=== PATIENT | female | born 1940 | race Caucasian/White ===

== ENCOUNTER 2016-08-21 16:03 | Emergency (ER) | payer MEDICARE ==
[~2016-08-21] VITALS: Ht 162.6 cm; Wt 68.0 kg
[~2016-08-21 16:03] MED LIST: ACIPHEX 20 MG T20 MG PO; ALBUTEROL0.09 MG/A2 IH; BENTYL GENERIC10 MG PO; FLEXERIL10 MG PO; LEVAQUIN250 MG PO; LORTAB 480 ML480 ML PO; MAXIDE; MEDROL 4MG. DOSE4 MG PO; NAPROSYN 500MG500 MG PO; PRILOSEC20 M1 PO; TRICOR 145 MG145 MG PO; WARFARIN SOD2 MG PO; WARFARIN SODIUM4 MG PO; WARFARIN4 MG PO; XANAX XR0.5 MG PO; ZOFRAN4 MG PO; [UNRECOGNIZED DRUG - OTHER] PO
--- NOTE | 2016-08-21 16:31 | Emergency Room Report ---
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 Clinical Suspician of Infection? Mental Status: Sepsis Risk: Have you (or family members/close friends) recently traveled outside the [facility]? If Yes, where/when: Have you had exposure to infectious disease within the past month? TB? Other? Specify: Source patient, RN notes reviewed Exam Limitations no limitations Comment Pt sat down on her bed earlier to fold some clothes and got to the point where she did not feel she could focus. She not black out but felt very weak. Some nausea and some achiness and she did not fall. 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 She states she is very nervous person and does have a mild PATEL with this. I have told her I can not do a CT of the head here today and if her labs show any type of abnormality, she may need to be transferred someplace else to get a CT. Cardiac Chest Pain Chest pain indicative of cardiac No ALLERGIES Coded Allergies: MDX - Aspirin (ASPIRIN) (N/V, INCREASED HR, DIAPHORESIS 12/12/11) MDX - Codeine (CODEINE) (RAPID HEART RATE 01/12/13) MDX - Morphine (MORPHINE) (RAPID HEART RATE 01/12/13) Home Medications Reported Medications [MAXIDE] Alprazolam (Xanax Xr) 0.5 MG PO BID Fenofibrate 145 MG PO QHS OMEPRAZOLE MAGNESIUM (Prilosec 20MG) 20 MG PO DAILY Warfarin Sodium 2 MG PO M,W,F Warfarin Sodium (Warfarin 4MG) 4 MG PO T,R,S,SUN History Medical History General CAD? No Angina: No TN: No Hypertension? Yes Hyperlipidemia? Yes CHF? No COPD? Yes Asthma? No Anemia? No Hernia? Yes Thyroid Problems? No Hypothyroidism? No CVA? Yes Seizures? No Diabetes? No End Stage Renal Disease? No UTI? No Stones? No GB Disease: Yes Nephritic Syndrome? No Asplenia? No Hepatitis? No Sickle Cell Disease? No Arthritis? Yes Cataracts? Yes Glaucoma? No MRSA? No TB? 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 Additional hx: BENIGN ESSENTIAL TREMORS Immunization Hx DT/Tetanus 1-4 Years Ago Flu THIS YR Pneumonia 1-4 YRS Surgical Hx Previous Surgery?Y RIGHT WRIST LEFT RENAL STENT BRADEN [place] RIGHT LUMPECTOMY POLYPS VAG PROLAPSE REPAIR RECTOCELE DISC/BONE GRAFTS C SPINE GREEN FIELD FILTER Family History Family Hx Diabetes No CAD Yes Hypertension Yes Hyperlipidemia Yes Cancer Yes TB No Social History Smoking Hx Packs/day < 1 Pack Alcohol Alcohol: No Review of Systems All Other Systems Reviewed and Negative Constitutional see HPI Eyes see HPI Psychiatric/Neurological see HPI Physical Exam Vital Signs Vital Signs Date Time Temp Pulse Resp B/P Pulse O2 O2 Flow FiO2 Ox Delivery Rate 08/21 1722 60 18 117/53 97 08/21 1638 84 18 147/72 98 08/21 1610 98.8 74 18 151/70 96 General Appearance normal appearance, WD/WN, no apparent distress Respiratory Status No: respiratory distress. Cardiovascular normal exam, regular rate/rhythm Neurologic alert, credentialing analyst II-XII nml as tested, normal exam, She does have a rather significant tremor and has been told in the past she has a Progressive central tremor and also told she has had a couple of mini strokes. but there is no arm drift, tongue protrudes in the midline and mile is symmetrical and speech is clear Medical Decision Making LABS/Meds/Orders Pt receiving controlled substance in ED? No Results/Orders Laboratory Tests 08/21/16 1612: Sodium 139, Potassium 3.5, Chloride 105, Carbon Dioxide 29, BUN 20 H, Creatinine 1.0, Estimated Creat Clear 51, Estimated GFR (MDRD) 54 L, Glucose 107 H, Calcium 9.0, Total Bilirubin 0.3, AST 28, ALT 27, Alkaline Phosphatase 51, Total Protein 8.2, Albumin 3.2 L, Globulin 5.0 H, Albumin/Globulin Ratio 0.6 L, PT 20.1 H, INR 1.88 H, WBC 5.1, RBC 4.73, Hgb 13.2, Hct 39.8, MCV 84.1 , RDW 14.8, Plt Count 197, MPV 7.0 L, Gran % 43.4, Gran # 2.2, Lymphocytes % 44.1, Monocytes % 6.1, Eosinophils % 5.5, Basophils % 0.8, Lymphocytes # 2.3, Monocytes # 0.3, Eosinophils # 0.3, Basophils # 0.0, PUBS MCHC 33.1, MCH 27.9 Current Medication Orders Sig/Kemar Start time Last Medication Dose Route Stop Time Status Admin Sodium Chloride 10 ML PRN PRN 08/21 1700 AC IV 08/22 164 Orders Procedure Date/time Status ELECTROCARDIOGRAM REQUEST 08/21 164 Active IV SALINE LOCK 08/21 164 Active PROTHROMBIN TIME 08/21 164 Complete CBC WITH AUTO DIFF 08/21 1648 Complete CHEM 12 PROFILE 08/21 1648 Complete Departure Departure Time of Disposition 1732 Disposition DC Home or Self Care(routine) Clinical Impression Primary Impression: Dizziness Secondary Impressions: TIA (transient ischemic attack) Qualifiers: Transient cerebral ischemia type: unspecified Qualified Code: G45.9 - Transient cerebral ischemic attack, unspecified Condition STABLE Referrals LUIS PEREZ (Family): 2 Days-Call Office Patient Instructions DI for Transient Ischemic Attack, Transient Ischemic Attack Additional Instructions Take Warfarin, 2mg extra, tonight and if symptoms worsen, go to an ED where a CT scan can be done tonight. If symptoms remain stable, return to this ED tomorrow after 2PM to get repeat CT scan Discharge Counseling Counseled pt/family regarding diagnosis, test results, medications/RX, home care, follow up needs ED Critical Care Critical Care No If Critical Care minutes are documented, the time involved in the performance of seperately reportable procedures was not counted toward critical care time documented. I directly delivered medical care to this critically ill and/or injured patient. Timely evaluation and treatment was necessary to address the significant organ system(s) dysfunction present in this patient. at 1735
[2016-08-21 16:58] LABS: HEMOGLOBIN 13.2 g/dL (12.2-16.2); LYMPH # 2.3 K/mm3 (0.7-4.5); LYMPH % 44.1 % (10-50.0)
[2016-08-21 17:50] VITALS: BP 143/66
--- OUTSIDE RECORDS SUMMARY | 2016-08-22 23:49 | External Medical Summary Rpt ---
Author Author , Organization [employer] Address Unknown Phone Unavailable Care Team Providers Care Outreach Worker Name Role Phone JUAN PABLODARIEN CROOKS , Unavailable Unavailable JUAN PABLO DELGADILLOISHAN STEVENS Purpose Continuity of Care Document - 01-12-2013 through 2016 Problems Code Diagnosis DOS Provider Status 305.1 305.1 06-07-2013 [place] TOBACCO USE [facility] 401.9 401.9 06-07-2013 [place] HYPERTENSIO [facility] 496 496 CHR 06-07-2013 [place] [facility] 847.0 06-07-2013 [place] SPRAIN OF [facility] E849.0 E849.0 06-07-2013 [place] ACCIDENT IN [facility] E886.9 E886.9 FALL 06-07-2013 [place] ON LEVEL [facility] G45.9 TRANSIENT CEREBRAL ISCHEMIC ATTACK, UNSPECIFIED R42 DIZZINESS AND GIDDINESS Allergies, Adverse Reactions, Alerts Type Drug Allergy Adverse Reaction to Substance Substance Reaction Severity Aspirin N/V,INCREASED Unknown HR,DIAPHORESIS Codeine RAPID HEART RATE Unknown Morphine RAPID HEART RATE Unknown Medications Na ND Rx Da Fi Fi Am Da Di Ph RX Ph St me C No te ll ll ou ys ag ar # ys at rm s nt no ma ic us Or Da si cy ia de te s n re d Sa 63 02 0 No li 80 -1 ne 70 3- Lo 10 20 ng Fl 07 14 er us 5 h Ac 10 ti ML ve Sy ri ng e Sa 63 02 0 No li 80 -1 ne 70 3- Lo 10 20 ng Fl 07 14 er us 5 h Ac 10 ti ML ve Sy ri ng e Sa 63 09 1 No li 80 -2 ne 70 0- Lo 10 20 ng Fl 07 13 er us 5 h Ac 10 ti ML ve Sy ri ng e HY [address] 40 -2 OM 91 0- Lo OR 31 20 ng PH 23 13 er ON 0 E Ac 2 ti MG ve /M L CA RP UJ CT ON 00 09 0 No DA 64 -2 NS 16 0- Lo ET 08 20 ng RO 02 13 er N 5 HC Ac L ti 4 ve MG /2 ML AL IN 00 09 0 No OM 64 -2 ET 11 0- Lo PATEL 49 20 ng ZI 53 13 er NE 5 Ac 25 ti ve MG /M L AM PU L SO 00 09 1 No DI 40 -2 UM 97 0- Lo 98 20 ng CH 42 13 er LO 0 RI Ac DE ti ve 0. 9% SO KIAH TI ON Vital Signs 06-07-2013 18:37 Name Value Interpretat Reference Comment ion Range Body 98.4 [degF] Temperature BP 76 mm[Hg] Diastolic BP Systolic 151 mm[Hg] Heart 81 /min Rate/Pulse O2% 95 % Respiratory 20 /min Rate 06-07-2013 18:31 Name Value Interpretat Reference Comment ion Range Body 98.4 [degF] Temperature BP 76 mm[Hg] Diastolic BP Systolic 151 mm[Hg] Heart 81 /min Rate/Pulse O2% 95 % Respiratory 20 /min Rate 01-13-2013 01:59 Name Value Interpretat Reference Comment ion Range BP 58 mm[Hg] Diastolic BP Systolic 110 mm[Hg] Heart 75 /min Rate/Pulse O2% 94 % Respiratory 20 /min Rate 01-12-2013 23:03 Name Value Interpretat Reference Comment ion Range BP 63 mm[Hg] Diastolic BP Systolic 119 mm[Hg] Heart 78 /min Rate/Pulse O2% 96 % Respiratory 20 /min Rate Results Labs Lab Lab Date Result Refere Interp Status Commen Order Detail nces retati t Range on URINALYSIS/COMPLETE (01-13-2013 01:20) URINE YELLOW YELLOW complet COLOR 013 ed 01:20 URINE CLEAR CLEAR complet APPEARA 013 ed NCE 01:20 URINE NEGATIV NEG complet GLUCOSE 013 E ed - 01:20 DIPSTIC K URINE NEGATIV NEG complet BILIRUB 013 E ed IN - 01:20 DIPSTIC K URINE NEGATIV NEG complet KETONE 013 E mg/dL ed 01:20 URINE Greater 1.005-1 complet SPECIFI 013 than .030 ed C 01:20 or GRAVITY equal to 1.030 URINE NEGATIV NEG complet BLOOD 013 E ed 01:20 URINE 5.5 UNK 5.0-8.5 complet PH 013 ed 01:20 URINE NEGATIV NEG complet PROTEIN 013 E mg/dL ed - 01:20 DIPSTIC K URINE 0.2 NEG complet UROBILI 013 E.U./dL ed NOGEN - 01:20 DIPSTIC K URINE NEGATIV NEG complet NITRATE 013 E ed - 01:20 DIPSTIC K URINE NEGATIV NEG complet LEUK 013 E ed ESTERAS 01:20 E URINE OCC 0 complet RBC 013 rbc/hpf ed 01:20 URINE 5-10 O complet WBC 013 wbc/hpf ed 01:20 URINE 5-10 NONE complet RENAL 013 #/HPF ed CELLS 01:20 COMPREHENSIVE METABOLIC PANEL (01-12-2013 22:45) Glucose 140 74-106 complet 013 mg/dL ed Bld-mCn 22:45 c BUN 20 7-18 complet Bld-mCn 013 mg/dL ed c 22:45 Creat 1.3 0.6-1.0 complet SerPl-m 013 mg/dL ed Cnc 22:45 ESTIMAT 43 50-200 complet ED 013 ML/MIN ed CREATIN 22:45 INE CLEARAN CE GFR 40 59- complet (ESTIMA 013 ML/MIN ed MATI) 22:45 Sodium 140 136-145 complet SerPl-s 013 mmoL/L ed Cnc 22:45 Potassi 3.3 3.5-5.1 complet um 013 mmoL/L ed SerPl-s 22:45 Cnc Chlorid 102 98-107 complet e 013 mmoL/L ed SerPl-s 22:45 Cnc CO2 28 21.0-32 complet SerPl-s 013 mmoL/L .0 ed Cnc 22:45 Calcium 9.0 8.5-10. complet 013 mg/dL 1 ed SerPl-m 22:45 Cnc Prot 8.0 6.4-8.2 complet SerPl-m 013 gm/dL ed Cnc 22:45 Albumin -20-2 3.7 3.4-5.0 complet 013 gm/dL ed SerPl-m 22:45 Cnc Globuli -20-2 4.3 1.3-3.2 complet n 013 gm/dL ed Ser-mCn 22:45 c Albumin 01-12-2 0.9 UNK 1.1-1.8 complet /Glob 013 ed SerPl-m 22:45 Rto Bilirub 01-12-2 0.2 0.2-1.0 complet 013 mg/dL ed SerPl-m 22:45 Cnc AST 01-12-2 18 U/L 15-37 complet SerPl-c 013 ed Cnc 22:45 ALT 01-12-2 32 U/L 30-65 complet SerPl-c 013 ed Cnc 22:45 ALP 01-12-2 75 U/L 50-136 complet SerPl-c 013 ed Cnc 22:45 PROTIME/INR (01-12-2013 22:45) PROTHRO 01-12-2 22.6 9.9-11. complet MBIN 013 SECONDS 6 ed TIME 22:45 INR Bld 01-12-2 2.10 0.9-1.1 complet 013 UNK ed 22:45 CBC with AUTO DIFF (01-12-2013 22:45) WBC # 20-2 9.3 4.8-10. complet Bld 013 K/MM3 8 ed Auto 22:45 RBC # 20-2 4.87 4.2-5.4 complet Bld 013 M/mm3 ed Auto 22:45 Hgb 01-12-2 14.1 12.2-16 complet Bld-mCn 013 g/dL .2 ed c 22:45 Hct Fr 01-12-2 42.2 % 37.0-47 complet Bld 013 .0 ed 22:45 MCV RBC 01-12-2 86.7 fl 82.2-97 complet 013 .8 ed 22:45 MCH RBC 20-2 29.1 pg 27-31.2 complet Qn 013 ed Auto 22:45 MEAN 01-12-2 33.5 31.8-35 complet CORPUSC 013 g/dl .4 ed ULAR 22:45 HGB CONC RDW RBC 09-20-2 15.4 % 11.5-17 complet Auto 013 .5 ed 22:45 Platele 09-20-2 246 142-424 complet t Bld 013 K/mm3 ed Ql 22:45 Manual MEAN -20-2 8.1 fl 7.4-10. complet PLATELE 013 4 ed T 22:45 VOLUME Granulo 09-20-2 59.7 % 37.0-80 complet cytes 013 .0 ed Fr Bld 22:45 Auto LYMPH % 09-20-2 30.1 % 10-50.0 complet 013 ed 22:45 Monocyt 09-20-2 6.0 % 1.7-9.3 complet es Fr 013 ed Bld 22:45 Auto Eosinop 09-20-2 3.8 % 0.1-12. complet hil Fr 013 0 ed Bld 22:45 Auto Basophi 09-20-2 0.4 % 0.1-2.0 complet ls Fr 013 ed Bld 22:45 Auto Granulo 09-20-2 5.5 1.8-7.8 complet cytes # 013 K/mm3 ed Bld 22:45 Auto Lymphoc 09-20-2 2.8 0.7-4.5 complet ytes Fr 013 K/mm3 ed Bld 22:45 Auto Monocyt 09-20-2 0.6 0.1-1.0 complet es # 013 K/mm3 ed Bld 22:45 Auto Eosinop 09-20-2 0.4 0.0-0.4 complet hil # 013 K/mm3 ed Bld 22:45 Auto Basophi 09-20-2 0.0 0-0.2 complet ls # 013 K/MM3 ed Bld 22:45 Auto Encounters Encounter Start End Date Code Location Performer Type Date Emergency BIRDIE CROOKS DO (ER) 4 18:02 4 19:19 [facility] Emergency BIRDIE Orr MD (ER) 3 22:31 3 02:01 [facility]
--- OUTSIDE RECORDS SUMMARY | 2016-08-22 23:49 | External Medical Summary Rpt ---
Author Author , Organization [employer] Address Unknown Phone Unavailable Care Team Providers Care Rug Renovator Name Role Phone JUAN PABLODARIEN CROOKS , Unavailable Unavailable JUAN PABLO DELGADILLOISHAN STEVENS Purpose Continuity of Care Document - 01-12-2013 through 2016 Problems Code Diagnosis DOS Provider Status 305.1 305.1 06-07-2013 [place] TOBACCO USE [facility] 401.9 401.9 06-07-2013 [place] HYPERTENSIO [facility] 496 496 CHR 06-07-2013 [place] AIRWAY [facility]0 847.0 06-07-2013 [place] SPRAIN OF [facility] E849.0 E849.0 06-07-2013 [place] ACCIDENT IN [facility] E886.9 E886.9 FALL 06-07-2013 [place] ON LEVEL [facility] [place] G45.9 TRANSIENT CEREBRAL ISCHEMIC ATTACK, UNSPECIFIED R42 [...] ti 4 ve MG /2 ML AL NM 00 09 0 No OM 64 -2 [...] CROOKS DO (ER) 4 18:02 4 19:[address] [facility] Emergency BIRDIE Orr MD (ER) 3 22:31 3 02:01 [facility]
--- OUTSIDE RECORDS SUMMARY | 2016-08-22 23:50 | External Medical Summary Rpt ---
Author Author [employer] Suazo, [employer] Organization [employer] Address Unknown Phone Unavailable
--- OUTSIDE RECORDS SUMMARY | 2016-08-22 23:50 | External Medical Summary Rpt ---
Demographics Preferred Language Iranian Marital Status Unknown Church Affiliation Unknown Race Unknown Ethnic Group Unknown Author Author , Organization [employer] Address Unknown Phone Unavailable Purpose Continuity of Care Document - through 2016 Immunization No patient found.
--- OUTSIDE RECORDS SUMMARY | 2016-08-22 23:50 | External Medical Summary Rpt ---
Author Author [employer] Organization [employer] Address Unknown Phone Unavailable Purpose Continuity of Care Document - through 2016
--- OUTSIDE RECORDS SUMMARY | 2016-08-22 23:50 | External Medical Summary Rpt ---
Demographics Preferred Language Paraguayan Marital Status Unknown Yazidism Affiliation Unknown Race Unknown Ethnic Group Unknown Author Author , Organization [employer] Address Unknown Phone Unavailable Purpose Continuity of Care Document - through 2016 Immunization No patient found.
--- OUTSIDE RECORDS SUMMARY | 2016-08-22 23:50 | External Medical Summary Rpt ---
Author Author [employer] Suazo, [employer] Organization [employer] Address Unknown Phone Unavailable
--- OUTSIDE RECORDS SUMMARY | 2016-08-23 00:26 | External Medical Summary Rpt ---
Author Author , Organization [employer] Address Unknown Phone Unavailable Care Team Providers Care Ladle Car Operator Name Role Phone JUAN PABLODARIEN CROOKS , Unavailable Unavailable JUAN PABLO DELGADILLOISHAN STEVENS Purpose Continuity of Care Document - 01-12-2013 through 2016 Problems Code Diagnosis DOS Provider Status 305.1 305.1 06-07-2013 [place] TOBACCO USE [facility] 401.9 401.9 06-07-2013 [place] HYPERTENSIO [facility] 496 496 CHR 06-07-2013 [place] AIRWAY [facility]0 847.0 06-07-2013 [place] SPRAIN OF [facility] E849.0 E849.0 06-07-2013 [place] ACCIDENT IN [facility] E886.9 E886.9 FALL 06-07-2013 [place] ON LEVEL [facility] G45.9 TRANSIENT CEREBRAL ISCHEMIC ATTACK, UNSPECIFIED R42 [...] ti 4 ve MG /2 ML AL SD 00 09 0 No OM 64 -2 [...] CROOKS DO (ER) 4 18:02 4 19:19 [facility] Emergency BIRDIE Orr MD (ER) 3 22:31 3 02:01 [facility]
--- OUTSIDE RECORDS SUMMARY | 2016-08-23 00:26 | External Medical Summary Rpt ---
Demographics Preferred Language Trinidadian Marital Status Unknown Pentecostal Affiliation Unknown Race Unknown Ethnic Group Unknown Author Author , Organization [employer] Address Unknown Phone Unavailable Purpose Continuity of Care Document - through 2016 Immunization No patient found.
--- OUTSIDE RECORDS SUMMARY | 2016-08-23 00:26 | External Medical Summary Rpt ---
Demographics Preferred Language Cypriot Marital Status Unknown Baptist Affiliation Unknown Race Unknown Ethnic Group Unknown Author Author , Organization [employer] Address Unknown Phone Unavailable Purpose Continuity of Care Document - through 2016 Immunization No patient found.
--- OUTSIDE RECORDS SUMMARY | 2016-08-23 00:26 | External Medical Summary Rpt ---
Author Author , Organization [employer] Address Unknown Phone Unavailable Care Team Providers Care Web Development Manager Name Role Phone JUAN PABLODARIEN CROOKS , Unavailable Unavailable JUAN PABLO DELGADILLOISHAN STEVENS Purpose Continuity of Care Document - 01-12-2013 through 2016 Problems Code Diagnosis DOS Provider Status 305.1 305.1 06-07-2013 [place] TOBACCO USE [facility] 401.9 401.9 06-07-2013 [place] HYPERTENSIO [facility] 496 496 CHR 06-07-2013 [place] AIRWAY [facility] 847.0 847.0 06-07-2013 [place] SPRAIN OF [facility] E849.0 E849.0 06-07-2013 [place] ACCIDENT IN [facility] E886.9 E886.9 FALL 06-07-2013 [place] ON LEVEL [facility] G45.9 TRANSIENT CEREBRAL ISCHEMIC ATTACK, UNSPECIFIED R42 [...] ti 4 ve MG /2 ML AL ND 00 09 0 No OM 64 -2 [...] CROOKS DO (ER) 4 18:02 4 19:19 [facility] Emergency BIRDIE Orr MD (ER) 3 22:31 3 02:01 [facility]
== END 2016-08-21 17:50 | disposition home or self-care (01) ==
LOC: ER 16:03
PROVIDERS: General Practice
DX: G45.9 Transient cerebral ischemic attack, unspecified (principal); R42 Dizziness and giddiness; I10 Essential (primary) hypertension; J44.9 Chronic obstructive pulmonary disease, unspecified; Z79.01 Long term (current) use of anticoagulants